=== PATIENT | female | born 2000 | race African-American/Black ===

== ENCOUNTER 2021-11-10 13:26 | Emergency (ER) | payer SELFPAY ==
[2021-11-10 14:21] LABS: #Eosinphils 0.1 10x3/uL (0.0-0.5); #Monocytes 0.5 10x3/uL (0.0-1.1); #Neutrophils 4.1 10x3/uL (1.5-8.4); %Basophils 0.6 % (0.0-2.0); %Eosinophils 1.6 % (0.0-6.0); %Lymphocytes 31.5 % (18.0-47.0); %Monocytes 7.1 % (0.0-10.0); %Neutrophils 59.1 % (40.0-75.0); Hemoglobin 12.6 g/dL (12.0-15.5); Mean Corpuscular Hemoglobin 27.1 pg (27.0-33.0); Mean Corpuscular Volume 84.7 fl (81.6-98.3); Mean Platelet Volume 9.9 fl (7.4-10.4); Platelet Count 360 10x3/uL (150-450); RBC Distribution Width 13.5 % (11.5-14.5); Red Blood Cell (RBC) Count 4.65 10x6/uL (3.90-5.03)
[2021-11-10] MEDS ORDERED: Ondansetron ODT 4 MG TAB ONE (14:30)
[2021-11-10] MEDS ORDERED: Dicyclomine 20 MG TAB ONE (14:31)
[2021-11-10 14:34] LABS: ALT (SGPT) 16 U/L (8-55); AST (SGOT) 18 U/L (5-34); Albumin 3.7 g/dL (3.5-5.0); Alkaline Phosphatase 93 U/L (40-110); Anion Gap 12 mmol/L (10-20); BUN (Urea Nitrogen) 15 mg/dL (7.0-18.7); Bilirubin, Total 0.4 mg/dL (0.2-1.2); Calc. Creatinine Clearance 0 mL/min (70-130); Calcium 8.9 mg/dL (7.8-10.44); Carbon Dioxide 26 mmol/L (22-29); Chloride 106 mmol/L (98-107); Estimated GFR 103; Globulin 3.3 g/dL (2.4-3.5); Glucose 76 mg/dL (70-105); Potassium 4.8 mmol/L (3.5-5.1); Sodium 139 mmol/L (136-145)
== END 2021-11-10 15:00 | disposition home or self-care (01) ==
LOC: CSHERS 13:26
DX: K59.00 Constipation, unspecified (principal); R10.13 Epigastric pain
CPT/HCPCS: 36415; 74019; 80053; 85025; Q0162

== ENCOUNTER 2022-05-15 10:03 | Emergency (ER) | payer OTHER, SELFPAY ==
[2022-05-15 12:29] LABS: ALT (SGPT) 15 U/L (8-55); AST (SGOT) 20 U/L (5-34); Albumin 3.9 g/dL (3.5-5.0); Alkaline Phosphatase 90 U/L (40-110); Anion Gap 12 mmol/L (10-20); BUN (Urea Nitrogen) 12 mg/dL (7.0-18.7); Bilirubin, Total 0.5 mg/dL (0.2-1.2); Calc. Creatinine Clearance 0 mL/min (70-130); Calcium 9.1 mg/dL (7.8-10.44); Carbon Dioxide 25 mmol/L (22-29); Chloride 106 mmol/L (98-107); Estimated GFR 127; Globulin 3.3 g/dL (2.4-3.5); Glucose 78 mg/dL (70-105); Lipase 24 U/L (8-78); Protein, Total 7.2 g/dL (6.0-8.3); Sodium 139 mmol/L (136-145)
[2022-05-15 12:30] LABS: #Eosinphils 0.1 10x3/uL (0.0-0.5); #Monocytes 0.5 10x3/uL (0.0-1.1); #Neutrophils 3.9 10x3/uL (1.5-8.4); %Basophils 0.6 % (0.0-2.0); %Eosinophils 1.4 % (0.0-6.0); %Lymphocytes 34.6 % (18.0-47.0); %Neutrophils 56.1 % (40.0-75.0); Hemoglobin 12.6 g/dL (12.0-15.5); Mean Corpuscular HGB CONC 33.3 g/dL (32.0-36.0); Mean Corpuscular Hemoglobin 28.8 pg (27.0-33.0); Mean Corpuscular Volume 86.3 fl (81.6-98.3); Platelet Count 321 10x3/uL (150-450); RBC Distribution Width 13.4 % (11.5-14.5); Red Blood Cell (RBC) Count 4.38 10x6/uL (3.90-5.03)
== END 2022-05-15 13:52 | disposition home or self-care (01) ==
LOC: CSHERS 10:03
DX: R10.11 Right upper quadrant pain (principal); R10.12 Left upper quadrant pain
CPT/HCPCS: 36415; 76705; 80053; 83690; 85025

== ENCOUNTER 2023-03-23 07:38 | Emergency (ER) | payer OTHER | END 2023-03-23 08:18 | disposition home or self-care (01) | LOC: CSHERS 07:38 | DX: N64.4 Mastodynia (principal) | CPT/HCPCS: 99283 ==